=== PATIENT | female | born 2000 | race Two or more races ===

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

== ENCOUNTER 2025-09-04 21:19 | Emergency (ER) | payer OTHER ==
[2025-09-04 21:25] VITALS: BP 135/81; PULSE 90; RESP 20; TEMP 99.3; BMI 33.3
[2025-09-04] MEDS ORDERED: ONDANSETRON 4 MG/2 ML VIAL ONE (21:38)
[2025-09-04] MEDS: ONDANSETRON 4 MG/2 ML VIAL IVPUSH ONE (21:50)
[2025-09-04 21:54] LABS: ABSOLUTE IMMATURE GRANULOCYTES 0.02 x10^3/uL (0.0-0.031); BASOPHILS # 0.04 x10^3/uL (0.01-0.08); EOSINOPHIL % 2.3 % (0.7-5.8); EOSINOPHILS # 0.13 x10^3/uL (0.04-0.36); MCHC 33.2 g/dl (32.2-35.5); MEAN CELL VOLUME 92.1 fl (79.4-94.8); MEAN PLT VOLUME 10.0 fl (9.4-12.3); MONOCYTE # 0.35 x10^3/uL (0.24-0.86); MONOCYTE % 6.2 % (4.7-12.5); RDW 13.6 % (12.1-16.5)
[2025-09-04] MEDS: SODIUM CHLORIDE 0.9% 500 ML INFUS.BAG IV ONE (22:08)
[2025-09-04 22:19] LABS: GLUCOSE,RANDOM 103.0 mg/dL (74-106)
[2025-09-04 22:20] LABS: TOT PROT 7.1 g/dl (6.4-8.2)
[2025-09-04 22:21] LABS: CO2 24.0 mmol/L (21-32)
[2025-09-04 22:22] LABS: ALK PHOS 95.0 U/L (40-150)
[2025-09-04 22:25] LABS: CREATININE 0.7 mg/dL (0.55-1.3); SGOT/AST 28.0 U/L (5-34); SGPT/ALT 42.0 U/L (0-55)
[2025-09-04 22:46] LABS: HCV DIAGNOSTIC IN-HOUSE W/RFLX NON-REACTIVE (NONREACTIVE); HIV INTERPRETATION NEGATIVE (NEGATIVE)
[2025-09-04] MEDS ORDERED: KETOROLAC TROMETHAMINE 30 MG/1 ML VIAL ONE (22:50)
[2025-09-04] MEDS: KETOROLAC TROMETHAMINE 30 MG/1 ML VIAL IVPUSH ONE (22:54)
== END 2025-09-04 23:31 | disposition home or self-care (01) ==
LOC: JER 21:19
PROC: 3E033GC Introduction of Other Therapeutic Substance into Peripheral Vein, Percutaneous Approach (ICD-10-PCS; principal; 2025-09-04)
PROC: 3E0333Z Introduction of Anti-inflammatory into Peripheral Vein, Percutaneous Approach (ICD-10-PCS; 2025-09-04)
DX: K80.20 Calculus of gallbladder without cholecystitis without obstruction (principal); R10.11 Right upper quadrant pain; R11.2 Nausea with vomiting, unspecified
CPT/HCPCS: 36415; 76705-TC; 80053; 82150; 83690; 84703; 85025; 86803; 87389; 96374; 96375; 99285-25